=== PATIENT | male | born 1980 | race Two or more races ===

== ENCOUNTER 2018-07-24 07:43 | Day surgery (SDC) | payer OTHER ==
[2018-07-17 14:36] LABS: Basophils # (auto) 0.1 uL; Eosinophils # (auto) 0.2 uL; Eosinophils % (auto) 2.5 % (0.0-7.0); Hematocrit 47.5 % (41.0-53.0); Hemoglobin 16.4 g/dL (13.5-17.5); Lymphocytes # (auto) 2.4 uL; Lymphocytes % (auto) 34.4 % (10.0-50.0); Mean Corpuscular Hemoglobin 31.9 pg (28.0-32.0); Mean Corpuscular Hgb Conc. 34.5 g/dL (32.0-36.0); Mean Corpuscular Volume 92.5 fL (80.0-100.0); Monocytes # (auto) 0.5 uL; Monocytes % (auto) 7.6 % (0.0-12.0); Neutrophils # (auto) 3.8 uL; Neutrophils % (auto) 54.5 % (37.0-80.0); Nucleated Red Blood Cells % 0.1 %; Platelet Count (auto) 265 10^3/uL (140-450); Red Blood Cells 5.14 10^6/uL (4.5-5.90); Urine Bacteria NONE SEEN /hpf (None Seen); Urine Blood Negative /uL (Negative); Urine Mucus FEW (None Seen); Urine Specific Gravity 1.018 (1.001-1.035); Urine WBC <1 /hpf (0 - 3)
[2018-07-17 14:47] LABS: INR 0.98 (0.9-1.15); Partial Thromboplastin Time 28.9 sec (23.78-33.04); Prothrombin Time 10.5 sec (9.27-12.13)
[2018-07-17 14:49] LABS: Albumin 4.3 g/dL (3.4-5.0); BUN/Creatinine Ratio 10.9; Bilirubin, Total 0.4 mg/dL (0.2-1.0); Calcium 9.2 mg/dL (8.5-10.1); Potassium 4.3 mmol/L (3.5-5.1); Total Protein 8.6 g/dL (6.4-8.2)
[~2018-07-24] VITALS: Ht 170.2 cm; Wt 93.0 kg
[~2018-07-24 07:43] MED LIST: CYAN1TAB14 PO; MULT-228 PO; [UNRECOGNIZED DRUG - CODE] TOP
[2018-07-24] MEDS ORDERED: ceFAZolin 1GM/50ML 50 ML IV ONE (08:33)
[2018-07-24] MEDS ORDERED: MIDAZOLAM HCL 1MG/1ML-2 ML VIAL ONE (09:41)
[2018-07-24] MEDS ORDERED: fentaNYL CITRATE 100 MCG/2 ML VL ONE (09:41)
[2018-07-24] MEDS ORDERED: PROPOFOL 10 MG/ML 20 ML IV ONE (09:42)
[2018-07-24] MEDS ORDERED: DEXAMETHASONE SOD PHOS 10MG/1ML VIAL INJ ONE (09:42)
[2018-07-24] MEDS ORDERED: LIDOCAINE 1% (LOCAL ANESTH.) PF 5ml SDV ONE (10:00)
[2018-07-24] MEDS ORDERED: LIDOCAINE W/ EPINEPHRINE 1% 20ML VIAL ONE (10:00)
[2018-07-24] MEDS ORDERED: HYDROmorphone HCL 2 MG/ML VL IV PRN (10:30)
[2018-07-24] MEDS ORDERED: LABETALOL HCL 5 MG/ML 4ML SYRINGE IV PRN (10:30)
[2018-07-24] MEDS ORDERED: MORPHINE SULFATE 4 MG/ML SYR/VIAL IV PRN (10:30)
[2018-07-24] MEDS ORDERED: MIDAZOLAM HCL 1MG/1ML-2 ML VIAL IV PRN (10:30)
[2018-07-24] MEDS ORDERED: ONDANSETRON HCL 4 MG/2 ML VIAL IV ONE (10:30)
[2018-07-24] MEDS ORDERED: ePHEDrine SULFATE 50 MG/ML AMP IV PRN (10:30)
[2018-07-24] MEDS ORDERED: KETOROLAC TROMETH 30 MG/ML 1ML VIAL IV ONE (10:30)
[2018-07-24] MEDS ORDERED: KETOROLAC TROMETH 30 MG/ML 1ML VIAL ONE (10:34)
[2018-07-24 11:19] VITALS: BP 114/67
[2018-07-24] MEDS ORDERED: MORPHINE SULFATE 4 MG/ML SYR/VIAL IV ONE (12:00)
== END 2018-07-24 11:19 | disposition home or self-care (01) ==
LOC: SUR 07:43
PROVIDERS: ATTEND Urology
DX: Z30.2 Encounter for sterilization (principal); E66.9 Obesity, unspecified; R56.9 Unspecified convulsions; F43.10 Post-traumatic stress disorder, unspecified; Z68.32 Body mass index [BMI] 32.0-32.9, adult; Z79.899 Other long term (current) drug therapy; Z88.6 Allergy status to analgesic agent; Z98.890 Other specified postprocedural states; Z90.49 Acquired absence of other specified parts of digestive tract
CPT/HCPCS: 36415; 55250; 80053; 81001; 85025; 85610; 85730; 87086; J0690; J1100; J1885; J2250; J2704; J3010; J7030; 88302

== ENCOUNTER 2019-07-22 19:02 | Emergency (ER) | payer OTHER ==
[~2019-07-22] VITALS: Ht 170.2 cm; Wt 89.8 kg
[2019-07-22 19:25] VITALS: BP 113/78
== END 2019-07-22 20:45 | disposition left against medical advice (07) ==
LOC: ER 19:04
DX: R11.2 Nausea with vomiting, unspecified (principal); R06.02 Shortness of breath; R20.0 Anesthesia of skin; Z53.21 Procedure and treatment not carried out due to patient leaving prior to being seen by health care provider